=== PATIENT | male | born 1965 | race Caucasian/White ===

== ENCOUNTER 2016-05-20 02:35 | Emergency (ER) | payer OTHER ==
[~2016-05-20 02:35] MED LIST: ANDROGEL PUMP; BUSPIRONE HCL5 MG PO; HALCION EQUI0.125 MG SL; IBUPROFEN600 MG PO; NORCO1 TA2 PO; OMEPRAZOLE20 MG
--- NOTE | 2016-05-20 03:16 | ED NURSING NOTES ---
Clinical Report - Nurses [facility] [address] [place] [address] 05/20/2016 2:35 Patient: JAMES KAPLAN TRIAGE Triage time 02:39. Chief Complaint: FALL (pt took a sleeping pill at 2000, went to the bathroom and fell backwards at about 2100). --02:44 Nadine Horton R.N. 02:39 05/20/16. BP: 127/78. HR: 81. RR: 16. O2 saturation: 98% on room air. Temp: 98.2 F (oral). Dodson-Erickson pain scale: 4/10. --02:44 Nadine Horton R.N. Weight: 77.1 kg stated. Height/Length: 70 inches Per Patient. BMI: 24.4. --02:42 Nadine Horton R.N. Medications anxiety med. Vicodin Oral. --02:42 Nadine Horton R.N. BusPIRone HCl Oral. --02:43 Nadine Horton R.N. Triazolam Oral. --02:44 Nadine Horton R.N. Allergies No Known Drug Allergy. --02:42 Nadine Horton R.N. History Arrived by private vehicle, and accompanied by spouse. Primary physician (Renzo). This occurred (at about 2100). PAST MEDICAL HX: Tetanus status: up-to-date. Immunizations: up-to-date. SOCIAL HX: Heavy tobacco smoker (cigarette)- 1 pack per day. Regular alcohol use. No drug use. NUTRITIONAL RISK ASSESSMENT: The nutritional risk assessment revealed no deficiencies. FUNCTIONAL ASSESSMENT: Functional assessment: no impairments noted. --02:44 Nadine Horton R.N. No loss of consciousness. --02:49 Nadine Horton R.N. PROBLEMS: Pelvic Fracture. Gastroesophageal Reflux Disease. --02:44 Nadine Horton R.N. ADDITIONAL SURGERIES: Hip Surgery. Knee Surgery. Shrapnel removal from arm. --02:44 Nadine Horton R.N. PHYSICAL ASSESSMENT Ambulatory to room. GENERAL / NEURO / PSYCH: Alert. Oriented X 4. Appears in pain. SKIN: Skin is warm and dry. --02:44 Nadine Horton R.N. NURSING PROGRESS NOTES Two patient identifiers checked. Call light placed in reach. Side rails up x 1. Bed placed in lowest position. Brakes of bed on. --02:45 Nadine Horton R.N. 03:02. Patient transported to radiology by stretcher with tech. --03:04 McQuoid, Naomy, ER Tech1 03:09. Patient returned from radiology by stretcher with tech. --03:09 McQuoid, Naomy, ER Tech1. DISPOSITION / DISCHARGE 03:18 05/20/16. Condition at departure: stable. The goals identified in the patient's plan of care were met. Learning barriers present. Ability to learn limited by poor cooperation. Discharge instructions provided and reviewed with the patient. Patient and spouse verbalized understanding. Written instructions provided in Pakistani. ( Follow up with PCP in one week. Use Ice for twenty minutes at a time. Use anti-inflammatories as needed.). The patient was discharged by the physician. He was discharged home and accompanied by spouse. He left the Emergency Department ambulatory and via private vehicle. Spouse driving. FALL RISK ASSESSMENT: Fall risk assessment completed. No fall risk identified. --04:41 Betty Booth 03:18 05/20/16. BP: deferred. HR: deferred. RR: deferred. O2 saturation: deferred. Temp: deferred. Additional comments: Patient declined discharge vitals . --04:41 Betty Booth. Locked/Released at 05/20/2016 4:42 by Betty Booth,
--- NOTE | 2016-05-20 03:16 | ED CLINICAL REPORT ---
Clinical Report - Physicians/Mid Levels [facility] [address] [place] [address] 05/20/2016 2:35 Patient: JAMES KAPLAN Arrived- By private vehicle. Historian- patient. HISTORY OF PRESENT ILLNESS Location of injuries- (right hip). Chief Complaint: FALL. The injury occurred today. Fell. Occurred at home. The patient complains of mild pain. No blow to the head, neck pain, loss of consciousness or seizure. Not dazed. (reports hx of "hip surgery" states that he is concerned about it and wanted to make sure it was still good. reports no n/v. declines offers of pain medications. reports he was sleepy when he did this. expresses understanding when cautioned about sleeping aides/sedatives). REVIEW OF SYSTEMS No chest pain, difficulty breathing, weakness, headache or nausea. No fever or vomiting. All systems otherwise negative, except as recorded above. PAST HISTORY See nurses notes. Tetanus immunization status is up-to-date. Medications: Triazolam Oral. BusPIRone HCl Oral. anxiety med. Vicodin Oral. Allergies: No Known Drug Allergy. SOCIAL HISTORY Smoker- current status unknown. Alcohol use. No drug use. Is a local resident. ADDITIONAL NOTES The nursing notes have been reviewed. PHYSICAL EXAM Vital Signs: 05/20/2016 02:39 BP: 127/78. HR: 81. RR: 16. O2 saturation: 98%. Temp: 98.2 F. Dodson-Erickson pain scale: 4/10. Blood pressure normal. Oxygen saturation normal. Appearance: Alert. Oriented X3. No acute distress. Head: Head non-tender. No swelling of head. No Lewis's sign or raccoon eyes. Eyes: Pupils equal, round and reactive to light. Pupillary exam: Right pupil round and reactive to light directly and consensually and with accommodation. Left pupil: round and reactive to light directly and consensually and with accommodation. Left pupil not 3mm in size. EOM intact. ENT: No dental injury. No hemotympanum. Pharynx normal. (idface stable). Neck: No decreased ROM or muscle spasm in the neck. No pain with movement of head/neck. Painless ROM. Non-tender. No vertebral tenderness. CVS: Heart sounds normal. Pulses normal. Respiratory: Breath sounds normal. Chest nontender. Abdomen: No visible injury. Soft and nontender. Bowel sounds normal. No organomegaly. No mass. Back: No tenderness. ROM normal. No tenderness or vertebral point tenderness. Skin: Skin intact. Skin warm and dry. Normal skin color. Extremities: Normal inspection. Pelvis stable. Extremities atraumatic. No lower extremity edema. (no tenderness with log rolling of the hip. Mildtenderness with palpation of the right lateral hip. No osseous normality is. No overlying skin changes. No pain with external and internal flexion and extension of thehip. Knee and back are atraumatic. Rest of the extremity is atraumatic. Pulses are 2+ and symmetrical the contralateral side at the dorsalis pedis and Posteriortibialis pulses. Strength is 5 out of 5 and symmetrical to the contralateral side.). Neuro: [place] Coma Scale: 15- eyes open spontaneously (4); best verbal response- oriented x 3 (5); best motor response- obeys commands (6). Oriented X 3. No motor deficit. LABS, X-RAYS, AND EKG Rt Hip X-ray: No fracture. Normal alignment. No bony lesion. (Prior ORIF of the pelvis noted onradiograph appears to be intact and nondisplaced.). Views: 2 view hip series. Technique: good. The X-rays were independently viewed by me and interpreted contemporaneously by me. PROGRESS AND PROCEDURES Course of Care: The patient is a pleasant 50-year-old male presenting [facility] a ground[facility] The patient has no signs of neurovascular compromise. Compartments are soft. No overlying skin changes. No indication for CT scan of the head. Patient is appropriate. No preceding symptoms other thangeneralized sleepiness from sleep aid. Patient will be evaluated with radiographs of the right hip for evaluation of prior surgery to the right hip. Patient is agreeable to treatment plan. Patient currently declines offers of pain medication. Workup does not show any acute osseous abnormalities. Hardware is intact. On repeat examination, patient continues to be neurovascularly intact. I discussed the patient workup, diagnosis, home care, follow-up, and return precautions. All questions answered. The patient expressed understanding of these instructions and was agreeable to them. CLINICAL IMPRESSION 05/20/2016 02:39 BP: 127/78. HR: 81. RR: 16. O2 saturation: 98%. Temp: 98.2 F. Dodson-Erickson pain scale: 4/10. Blood pressure normal. Oxygen saturation normal. Single contusion to the right buttocks.No hematoma or skin abrasion. INSTRUCTIONS Warnings: GENERAL WARNINGS: Return or contact your physician immediately if your condition worsens or changes unexpectedly, if not improving as expected, or if other problems arise. SPECIFICALLY, return if you develop weakness, numbness, tingling, pain or incontinence. Your Current Medications: CONTINUE TAKING THE FOLLOWING MEDICATIONS: anxiety med*. BusPIRone HCl Oral. Triazolam Oral. Vicodin Oral. Follow-up: Return to the emergency department as needed. Follow up with your doctor in one week. Reason for referral: recheck today's concerns. Summary of care provided to patient via paper. Screening today revealed the patient's blood pressure to be in the normal range. The patient should follow up with a primary care provider for blood pressure management. Understanding of the discharge instructions verbalized by patient. (Electronically signed by Boston Ramírez Dr. 05/25/2016 10:29)
--- NOTE | 2016-05-20 03:16 | ED ORDER SUMMARY ---
..... Patient: JAMES KAPLAN OrderSheet [facility] VisitID: [id number] [address] [place] [address] 50y, M Registration Date/Time: 05/20/2016 ORDER SHEET Weight: 77.1 kg (stated) Allergies: No Known Drug Allergy GENERAL ORDERS: Hip 2V Right w AP Pelvis Urgent (02:50 05/20/2016 Rachell Natarajan) (Ack 2:53 AMcQuoid ER Tech1) (3:09 AMcQuoid ER Tech1) MEDICATION ORDERS: IV FLUIDS: ORDER SHEET NOTES: [Electronically signed by Betty Booth (04:42 05/20/2016)] [Electronically signed by Boston Ramírez Dr. (10:29 05/25/2016)] [Electronically locked/signed by Betty Booth (04:42 05/20/2016)]
--- NOTE | 2016-05-20 03:16 | ED ORDER SUMMARY ---
..... Patient: JAMES KAPLAN OrderSheet [facility] VisitID: [id number] [address] [place] [address] 50y, M Registration Date/Time: 05/20/2016 ORDER SHEET Weight: 77.1 kg (stated) Allergies: No Known Drug Allergy GENERAL ORDERS: Hip 2V Right w AP Pelvis Urgent (02:50 05/20/2016 Rachell Natarajan) (Ack 2:53 AMcQuoid ER Tech1) (3:09 AMcQuoid ER Tech1) MEDICATION ORDERS: IV FLUIDS: ORDER SHEET NOTES: [Electronically signed by Betty Booth (04:42 05/20/2016)] [Electronically signed by Boston Ramírez Dr. (10:29 05/25/2016)] [Electronically locked/signed by Betty Booth (04:42 05/20/2016)]
--- NOTE | 2016-05-20 03:16 | ED NURSING NOTES ---
Clinical Report - Nurses [facility] [address] [place] [address] 05/20/2016 2:35 Patient: JAMES KAPLAN TRIAGE Triage time 02:39. Chief Complaint: FALL (pt took a sleeping pill at 2000, went to the bathroom and fell backwards at about 2100). --02:44 Nadine Horton R.N. 02:39 05/20/16. BP: 127/78. HR: 81. RR: 16. O2 saturation: 98% on room air. Temp: 98.2 F (oral). Dodson-Erickson pain scale: 4/10. --02:44 Nadine Horton R.N. Weight: 77.1 kg stated. Height/Length: 70 inches Per Patient. BMI: 24.4. --02:42 Nadine Horton R.N. Medications anxiety med. Vicodin Oral. --02:42 Nadine Horton R.N. BusPIRone HCl Oral. --02:43 Nadine Horton R.N. Triazolam Oral. --02:44 Nadine Horton R.N. Allergies No Known Drug Allergy. --02:42 Nadine Horton R.N. History Arrived by private vehicle, and accompanied by spouse. Primary physician (Renzo). This occurred (at about 2100). PAST MEDICAL HX: Tetanus status: up-to-date. Immunizations: up-to-date. SOCIAL HX: Heavy tobacco smoker (cigarette)- 1 pack per day. Regular alcohol use. No drug use. NUTRITIONAL RISK ASSESSMENT: The nutritional risk assessment revealed no deficiencies. FUNCTIONAL ASSESSMENT: Functional assessment: no impairments noted. --02:44 Nadine Horton R.N. No loss of consciousness. --02:49 Nadine Horton R.N. PROBLEMS: Pelvic Fracture. Gastroesophageal Reflux Disease. --02:44 Nadine Horton R.N. ADDITIONAL SURGERIES: Hip Surgery. Knee Surgery. Shrapnel removal from arm. --02:44 Nadine Horton R.N. PHYSICAL ASSESSMENT Ambulatory to room. GENERAL / NEURO / PSYCH: Alert. Oriented X 4. Appears in pain. SKIN: Skin is warm and dry. --02:44 Nadine Horton R.N. NURSING PROGRESS NOTES Two patient identifiers checked. Call light placed in reach. Side rails up x 1. Bed placed in lowest position. Brakes of bed on. --02:45 Nadine Horton R.N. 03:02. Patient transported to radiology by stretcher with tech. --03:04 McQuoid, Naomy, ER Tech1 03:09. Patient returned from radiology by stretcher with tech. --03:09 McQuoid, Naomy, ER Tech1. DISPOSITION / DISCHARGE 03:18 05/20/16. Condition at departure: stable. The goals identified in the patient's plan of care were met. Learning barriers present. Ability to learn limited by poor cooperation. Discharge instructions provided and reviewed with the patient. Patient and spouse verbalized understanding. Written instructions provided in Belizean. ( Follow up with PCP in one week. Use Ice for twenty minutes at a time. Use anti-inflammatories as needed.). The patient was discharged by the physician. He was discharged home and accompanied by spouse. He left the Emergency Department ambulatory and via private vehicle. Spouse driving. FALL RISK ASSESSMENT: Fall risk assessment completed. No fall risk identified. --04:41 Betty Booth 03:18 05/20/16. BP: deferred. HR: deferred. RR: deferred. O2 saturation: deferred. Temp: deferred. Additional comments: Patient declined discharge vitals . --04:41 Betty Booth. Locked/Released at 05/20/2016 4:42 by Betty Booth,
--- NOTE | 2016-05-20 06:38 | DIAGNOSTIC IMAGING REPORT ---
PROCEDURE: XR HIP 2VW W W/O AP PELVIS-RT INDICATION: FALL, HX OF REPLACEMENT TECHNIQUE: AP view of the pelvis and hips with lateral view of the right hip. COMPARISON: Compare radiographs of the pelvis on 09/23/2015. FINDINGS: RIGHT HIP: Osseous structures and joint spaces are normal. PELVIS: There are two long metal screws transfixing the posterior pelvis, and right and left sacroiliac joints. There is an old right inferior pubic ramus fracture. The rest of the pelvis is normal IMPRESSION: 1. Postoperative changes of the pelvis. 2. Old right inferior pubic ramus fracture. 3. Negative right hip. 4. No evidence of acute process.
--- NOTE | 2016-05-25 10:30 | ED MED RECONCILIATION SUMMARY ---
Patient: JAMES KAPLAN Medication Reconciliation Report [facility] VisitID: [id number] [address] [place] [address] 50y, M Registration Date/Time: 05/20/2016 Weight: 77.1 kg Height/Length: 70 in. BMI: 24.4 ALLERGIES: No Known Drug Allergy The patient's Home Medications are listed below: CONTINUE TAKING THE FOLLOWING MEDICATIONS: anxiety med BusPIRone HCl Oral Triazolam Oral Vicodin Oral The source(s) of the original Home Medication information: Not obtained. The following Medications were given to the patient in the Emergency Department: None. The following Medications were prescribed to the patient: None.
--- NOTE | 2016-05-25 10:30 | ED MAR SUMMARY ---
..... Medication Administration Record [facility] [address] [place], [place] [id number] Patient: JAMES KAPLAN Visit ID: [id number] 50y, M Weight: 77.1 kg Height/Length: 70 in BMI: 24.4 ALLERGIES: No Known Drug Allergy
--- NOTE | 2016-05-25 10:30 | ED DISCHARGE INSTRUCTIONS ---
Patient: JAMES KAPLAN General Instructions [facility] VisitID: [id number] [place] [address] 50y, M Registration Date/Time: 05/20/2016 05/20/2016 02:39 BP: 127/78. HR: 81. RR: 16. O2 saturation: 98%. Temp: 98.2 F. Dodson-Erickson pain scale: 4/10. Blood pressure normal. Oxygen saturation normal. Single contusion to the right buttocks.No hematoma or skin abrasion. INSTRUCTIONS Warnings: GENERAL WARNINGS: Return or contact your physician immediately if your condition worsens or changes unexpectedly, if not improving as expected, or if other problems arise. SPECIFICALLY, return if you develop weakness, numbness, tingling, pain or incontinence. Your Current Medications: CONTINUE TAKING THE FOLLOWING MEDICATIONS: anxiety med*. BusPIRone HCl Oral. Triazolam Oral. Vicodin Oral. Follow-up: Return to the emergency department as needed. Follow up with your doctor in one week. Reason for referral: recheck today's concerns. Summary of care provided to patient via paper. Screening today revealed the patient's blood pressure to be in the normal range. The patient should follow up with a primary care provider for blood pressure management. Understanding of the discharge instructions verbalized by patient. ADDITIONAL INFORMATION Contusion,Soft Tissue You have a CONTUSION, which is a bruise with swelling and some bleeding under the skin. There are no broken bones. This injury takes a few days to a few weeks to heal. Home Care: 1) Keep the injured part elevated to reduce pain and swelling. This is especially important during the first 48 hours. 2) Make an ice pack (ice cubes in a plastic bag, wrapped in a towel) and apply for 20 minutes every 1-2 hours the first day. Continue this 3-4 times a day until the pain and swelling goes away. 3) You may use acetaminophen (Tylenol) or ibuprofen (Motrin, Advil) to control pain, unless another pain medicine was prescribed. [ NOTE : If you have chronic liver or kidney disease or ever had a stomach ulcer or GI bleeding, talk with your doctor before using these medicines.] Follow Up with your doctor or this facility if you are not improving within the next THREE days. [NOTE: If X-rays were taken, they will be reviewed by a radiologist. You will be notified of any new findings that may affect your care.] Get Prompt Medical Attention if any of the following occur: -- Pain or swelling increases -- Injured arm or leg becomes cold, blue, numb or tingly -- Redness, warmth or drainage from the skin You have been given the following additional information: Contusion, Soft Tissue (Electronically signed by Boston Ramírez Dr. 05/25/2016 10:29)
--- NOTE | 2016-05-25 10:30 | ED MAR SUMMARY ---
..... Medication Administration Record [facility] [address] [place], [place] [id number] Patient: JAMES KAPLAN Visit ID: [id number] 50y, M Weight: 77.1 kg Height/Length: 70 in BMI: 24.4 ALLERGIES: No Known Drug Allergy
--- NOTE | 2016-05-25 10:30 | ED MED RECONCILIATION SUMMARY ---
Patient: JMAES KAPLAN Medication Reconciliation Report [facility] VisitID: [id number] [address] [place] [address] 50y, M Registration Date/Time: 05/20/2016 Weight: 77.1 kg Height/Length: 70 in. BMI: 24.4 ALLERGIES: No Known Drug Allergy The patient's Home Medications are listed below: CONTINUE TAKING THE FOLLOWING MEDICATIONS: anxiety med BusPIRone HCl Oral Triazolam Oral Vicodin Oral The source(s) of the original Home Medication information: Not obtained. The following Medications were given to the patient in the Emergency Department: None. The following Medications were prescribed to the patient: None.
== END 2016-05-20 03:21 | disposition home or self-care (01) ==
LOC: ED SRH 02:35
DX: S30.0XXA Contusion of lower back and pelvis, initial encounter (principal); W18.30XA Fall on same level, unspecified, initial encounter; Y93.9 Activity, unspecified; Y92.009 Unspecified place in unspecified non-institutional (private) residence as the place of occurrence of the external cause; Y99.9 Unspecified external cause status; Z79.891 Long term (current) use of opiate analgesic; Z79.899 Other long term (current) drug therapy

== ENCOUNTER 2016-06-18 17:04 | Outpatient (CLI) | payer OTHER ==
--- NOTE | 2016-06-18 19:12 | DIAGNOSTIC IMAGING REPORT ---
PROCEDURE: US SCROTUM/TESTICLE INDICATION: LEFT INGUINAL PAIN TECHNIQUE: Awad scale and color Doppler sonographic images through the scrotum were obtained. COMPARISON: None. FINDINGS: The right testicle measures 4.5 x 2.6 x 2.3 cm and the left measures 4.4 x 2.3 x 3.0 cm. Both testicles demonstrate homogeneous echotexture without solid mass, cyst, or numerous microcalcifications. Color Doppler imaging demonstrates normal and symmetric arterial and venous testicular flow. No suspicious hyperemia. The epididymi are normal in size, echotexture, and vascularity. There are prominent pampiniform plexus veins on the left consistent with varicocele. Trace bilateral hydroceles. No significant scrotal skin thickening. No evidence of left inguinal hernia. IMPRESSION: 1. Left-sided varicocele. 2. No evidence of left inguinal hernia by this exam. 3. Otherwise normal scrotal contents.
== END 2016-06-18 23:00 | disposition home or self-care (01) ==
LOC: US SRH 17:04
DX: I86.1 Scrotal varices (principal)